=== PATIENT | male | born 1980 | race Caucasian/White ===

== ENCOUNTER 2020-12-29 16:32 | Emergency (ER) | payer BC, SELFPAY ==
--- NOTE | ~2020-12-29 | XR_ITS ---
EXAMINATION: XR foot LT min 3V EXAM DATE: 12/29/2020 17:09 INDICATION: Landed on foot wrong. Pain, swelling bruising lat Lt foot. Initial encounter. TECHNIQUE: Left foot dorsoplantar, lateral and oblique projections obtained and reviewed. There is n o prior study for comparison. FINDINGS: Left metatarsal bones unremarkable. There are no acute fractures or dislocations identifi ed. There is no subcutaneous gas. There is swelling over the anterolateral aspect of the ankle, cli nical correlation. There are no radiopaque foreign bodies. Small calcaneal spurs. IMPRESSION: 1. XR foot LT min 3V exam without acute osseous findings. 2. Soft tissue swelling. Reviewed, dictated and finalized at location A.
[2020-12-29 16:58] VITALS: BP 152/97; PULSE 84; RESP 18; TEMP 37.3; O2SAT 100
[2020-12-29 19:59] VITALS: BP 133/90; PULSE 52; RESP 16; TEMP 37.1; O2SAT 99
--- NOTE | 2020-12-29 21:00 | PC.NURSE ---
Initial contact with patient. Pt requesting results of xray. Explained that this RN is unable to discuss results with the patient prior to an exam per a physician. Pt states that's bullshit. You can't read a fucking xray? You can't read a report? Again explained that I was unable to discuss his results, but that he is one of the next ones to be seen and that it's been very busy today after the holiday. Apologized for the wait. Pt states well, I've been here 4 hours already. I'm leaving . Pt told to return if worsening sxs. States yeah, right .
== END 2020-12-29 23:56 | disposition left against medical advice (07) ==
LOC: ANHED 20:30
PROVIDERS: Emergency Provider Emergency Medicine
DX: Z53.21 Procedure and treatment not carried out due to patient leaving prior to being seen by health care provider (principal)
CPT/HCPCS: 73630; 99199